=== PATIENT | male | born 2000 | race Caucasian/White ===

== ENCOUNTER 2022-12-11 06:50 | Emergency (ER) | payer MEDICAID ==
[~2022-12-11] VITALS: Ht 160 cm; Wt 81.6 kg
[2022-12-11 07:23] VITALS: BP_SYST 120
[2022-12-11 08:03] LABS: BASOPHILS % (AUTO) 0.2 % (0.0-2.0); HEMATOCRIT 48.8 % (36-54); HEMOGLOBIN 16.9 g/dL (14.0-18.0); LYMPHOCYTES # (AUTO) 0.5 K/uL (1.0-5.5); LYMPHOCYTES % (AUTO) 5.2 % (20.5-51.5); MEAN CORPUSCULAR HEMOGLOBIN 32 pg (27-31); MEAN CORPUSCULAR HGB CONC 35 % (32-36); MEAN CORPUSCULAR VOLUME 93 fL (79.0-98.0); MONOCYTES # (AUTO) 0.3 K/uL (0.0-1.0); MONOCYTES % (AUTO) 2.9 % (1.7-9.3); NEUTROPHILS % (AUTO) 91.7 % (40.0-70.0); PLATELET COUNT (AUTO) 151 K/uL (130-430); RED BLOOD CELL COUNT(AUTO) 5.25 MIL/uL (4.2-6.2); WHITE BLOOD COUNT (AUTO) 9.9 K/uL (4.8-10.8)
[2022-12-11] MEDS ORDERED: IBUPROFEN 800 MG TABLET PO ONE (08:15)
[2022-12-11] MEDS ORDERED: ONDANSETRON 4 MG ODT TAB PO ONE (08:15)
[2022-12-11 08:48] LABS: ANION GAP 10 (5-15); CALCIUM 9.3 mg/dL (8.4-11.0); CHLORIDE 101 mmol/L (98-107); CREATININE 0.73 mg/dL (0.55-1.30); GLUCOSE 148 mg/dL (70-99); UREA NITROGEN, BLOOD 15 mg/dL (8-21)
[2022-12-11 09:05] LABS: BILIRUBIN,URINE 1+ (NEGATIVE); GLUCOSE,URINE NEGATIVE (NEGATIVE); KETONES,URINE 2+ (NEGATIVE); LEUKOCYTE ESTERASE ,URINE NEGATIVE (NEGATIVE); NITRITE, URINE POSITIVE (NEGATIVE); PROTEIN URINE 1+ (NEGATIVE); UROBILINOGEN,URINE 0.2 (0.2-1.0)
[2022-12-11 09:11] LABS: ALANINE AMINOTRANSFERASE 42 U/L (12-78); ALBUMIN 4.8 g/dL (3.4-4.8); AMYLASE 44 U/L (0-100); ASPARTATE AMINOTRANSFERASE 38 U/L (10-37); LIPASE 59 U/L (73-393); TOTAL BILIRUBIN 2.3 mg/dL (0.0-1.0)
[2022-12-11 09:12] LABS: C-REACTIVE PROTEIN QUANT < 0.2 mg/dL (0-0.5); GFR AFRICAN AMERICAN 174 mL/min (>90)
[2022-12-11] MEDS ORDERED: IBUP-1969 PO (09:22)
[2022-12-11] MEDS ORDERED: IBUP-1971 PO (09:22)
[2022-12-11] MEDS ORDERED: ONDA-8 TL (09:22)
[2022-12-11 09:24] LABS: ACETONE, SERUM NEGATIVE (NEGATIVE)
[2022-12-11 09:26] LABS: BLOOD, URINE TRACE (NEGATIVE)
[2022-12-11 09:35] LABS: COLOR,URINE YELLOW (YELLOW)
[2022-12-11 09:36] LABS: CLARITY/URINE TURBID (CLEAR)
[2022-12-11 09:46] LABS: BACTERIA,URINE MANY /HPF (None Seen); MUCUS,URINE 1+ /LPF (None Seen); URINE AMORPHOUS URATE 3+ /HPF (None Seen)
[2022-12-11 10:05] VITALS: BP_SYST 116
== END 2022-12-11 10:05 | disposition home or self-care (01) ==
LOC: SED 06:50
DX: A05.9 Bacterial foodborne intoxication, unspecified (principal); R10.84 Generalized abdominal pain; R11.10 Vomiting, unspecified; R19.7 Diarrhea, unspecified; Z79.899 Other long term (current) drug therapy
CPT/HCPCS: 99284; 74176; 80053; 82009; 82150; 83690; 85025; 86140; 87086; 36415; 76376; 83605; 81003; 81000; Q0162